=== PATIENT | male | born 2000 | race Caucasian/White ===

== ENCOUNTER 2020-05-30 13:54 | Emergency (ER) | payer OTHER, SELFPAY ==
[2020-05-30 13:55] VITALS: BP 153/111; PULSE 93; RESP 15; TEMP 35.8; O2SAT 100; BMI 36.7
--- NOTE | 2020-05-30 14:08 | RAD_ITS ---
STUDY: X-RAY - PELVIS AND LEFT HIP REASON FOR EXAM: Left hip and buttock pain, prior fracture. TECHNIQUE: 2 views of the pelvis and hip. COMPARISON: None. FINDINGS: There is ossification in the sacrotuberous ligaments from remote injury. There is an orthopedic screw transfixing the left sacroiliac joint. There is enthesopathy of the left anterior-inferior iliac crest. There is chronic healed fracture deformity of the left superior and inferior pubic rami. Normal pubic symphysis. Normal bilateral ischial tuberosities. Normal visualized femoral head. Normal acetabulum. Normal hip joint. RAD/HIP, UNI W/ Pelvis 2-3 Views IMPRESSION: Chronic healed fracture deformity of the left obturator ring. Orthopedic screw transfixing the left sacroiliac joint. Electronically Signed: Pascual Curtis MD at 14:40 EST Tel , Service support ,
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
--- NOTE | 2020-05-30 14:58 | ED.DEP ---
ED Disposition - Plan for ED Patient: Disposition: Home or Assisted Living Instructions: ED Muscle Strain, Extremity Referrals: Leo Hughes MD [Primary Care Provider] - 1 Week if not improving [facility] [GROUP OF PHYSICIANS] - 1 Week if not improving Additional Instructions: Your x-ray showed no acute abnormality. This appears to be a strain of your left buttock and hip muscle. Ice to the area. Motrin for pain and inflammation. This should progressively improve if not follow-up for further evaluation and possibly more advanced imaging.
[2020-05-30 15:57] VITALS: BP 135/80; PULSE 78; RESP 12
== END 2020-05-30 15:57 | disposition home or self-care (01) ==
PROVIDERS: Emergency Provider Emergency Medicine; PCP Family Medicine
DX: S76.812A Strain of other specified muscles, fascia and tendons at thigh level, left thigh, initial encounter (principal); F17.220 Nicotine dependence, chewing tobacco, uncomplicated; X50.3XXA Overexertion from repetitive movements, initial encounter; Y93.89 Activity, other specified; Y92.89 Other specified places as the place of occurrence of the external cause; Y99.0 Civilian activity done for income or pay
CPT/HCPCS: 73502; 99282